=== PATIENT | female | born 1980 | race Hispanic/Latino ===

== ENCOUNTER 2023-02-19 08:02 | Inpatient (IN) | payer OTHER, SELFPAY ==
[2023-02-19] MEDS ORDERED: ACETAMINOPHEN 500 MG TAB ONE (08:28)
[2023-02-19] MEDS ORDERED: CEFTRIAXONE 2000 MG/VIAL ONE (08:29)
[2023-02-19] MEDS ORDERED: FENTANYL CITR 100 MCG/2 ML ONE ×2 (08:29→12:51)
[2023-02-19] MEDS ORDERED: IBUPROFEN 400 MG TAB ONE (08:29)
[2023-02-19] MEDS ORDERED: ONDANSETRON 4 MG/2 ML VIAL ONE (08:29)
[2023-02-19] MEDS ORDERED: IBUPROFEN 200 MG TAB PO ONE (08:29)
[2023-02-19] MEDS ORDERED: NA CHLORIDE 0.9% 2,000 ML ONE (08:30)
[2023-02-19 08:40] LABS: Absolute Lymphocytes (CBC) 0.6 K/uL (0.7-4.9); Hematocrit 30.1 % (36.0-45.0); Lymphocytes % 3.6 % (15.3-44.8); MCV 72.2 fL (80-100); MPV 7.6 fL (7.6-11.3); Platelets 192 thou/uL (152-406); RBC Red Blood Cell Count 4.17 M/uL (3.86-4.86)
[2023-02-19 08:46] LABS: Protime INR 1.47
--- NOTE | 2023-02-19 08:55 | RAD REPORT ---
[facility]23 8:45 am CLINICAL HISTORY: Cough;Abdominal distention COMPARISON: No comparisons TECHNIQUE: Portable AP view of the chest. FINDINGS: The lungs are clear. No pneumothorax or effusion. The cardiomediastinal contours are unre markable. IMPRESSION: No acute cardiopulmonary process.
[2023-02-19 09:06] LABS: Albumin 2.8 g/dL (3.4-5.0); Bilirubin Direct 0.3 mg/dL (0-0.2); Bilirubin Indirect, Calculated 0.4 mg/dL (0.2-0.8); Bilirubin Total 0.7 mg/dL (0.2-1.0); Magnesium 1.3 mg/dL (1.6-2.4); Protein, Total 7.5 g/dL (6.4-8.2); Troponin High Sensitivity 13.9 pg/mL (<58.9)
[2023-02-19 09:08] LABS: Potassium 2.6 mEq/L (3.5-5.1)
[2023-02-19] MEDS ORDERED: Magnesium Sulfate 2gm IVPB 2 G/50 ML BAG IV ONE (09:31)
[2023-02-19] MEDS ORDERED: POTASSIUM 25 MEQ EFFERV TAB ONE (09:31)
[2023-02-19] MEDS ORDERED: KCL 20 MEQ/100 mL IVPB 100 ML IV ONE ×2 (09:31→12:26)
[2023-02-19] MEDS ORDERED: NS KCL 20MEQ 1,000 ML IV ONE (09:31)
[2023-02-19 09:53] LABS: Blood Morphology Comment NOT SEEN (NOT SEEN); Platelet Estimate ADEQ; White Blood Cell Scan OK (OK)
[2023-02-19 10:41] LABS: Specific Gravity 1.005 (1.005-1.030); Urine Bacteria <20 /HPF (<20); Urine Bilirubin NEGATIVE (Negative); Urine Blood 3+ (Negative); Urine Clarity Extremely Turbid (Clear); Urine Color Light-Yellow (Yellow); Urine Glucose NEGATIVE (Negative); Urine Mucus Slight /HPF (None Seen); Urine Protein TRACE (Negative); Urine RBC <5 /HPF (None Seen); Urine Urobilinogen Normal (Normal); Urine pH 5.5 (5.0-7.0)
--- NOTE | 2023-02-19 10:41 | ER ---
Nurse's Notes [facility] Name: Gogo Russell Age: 43 yrs Sex: Female : 1980 Arrival Date: 02/19/2023 Time: 08:02 Bed 14 Private MD: Diagnosis: Fever, unspecified;Dehydration;Severe sepsis without septic shock;Abdominal tenderness;Hypokalemia;Hypomagnesemia;Hydronephrosis with renal and ureteral calculous obstruction;Pyelonephritis acute-obstructed Presentation: 02/19 08:06 Chief complaint: Patient states: N/V/D with cough, weakness for 4 days. Coronavirus ll1 screen: Vaccine status: Patient reports being unvaccinated. Client denies travel out of the [place] in the last 14 days. cough unrelated to allergies, diarrhea, fatigue, fever, headache, muscle pain, nausea, vomiting. Ebola Screen: Patient denies travel to an Ebola-affected area in the 21 days before illness onset. Initial Sepsis Screen: Does the patient meet any 2 criteria? Temp <36.0*C (96.8*F)) or > 38.3*C (100.9*F). HR > 90 bpm. Yes Does the patient have a suspected source of infection? Yes: Productive cough/pneumonia Other: N/V/D. Risk Assessment: Do you want to hurt yourself or someone else? Patient reports no desire to harm self or others. Onset of symptoms was February 16, 2023. 08:06 Method Of Arrival: Wheelchair ll1 08:06 Acuity: LORIN 2 ll1 Triage Assessment: 08:08 General: Appears uncomfortable, ill, Behavior is cooperative, appropriate for age, ll1 restless. General: Reports fever for feeling ill for fatigue for. Pain: Complains of pain in abdomen Pain currently is 7 out of 10 on a pain scale. Respiratory: Reports cough that is. GI: Reports cramping, diarrhea, nausea, vomiting. 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 aa5 Historical: - Allergies: 08:06 No Known Allergies; ll1 - PMHx: 08:06 None; ll1 - PSHx: 08:06 None; ll1 - Immunization history:: Adult Immunizations up to date. - Social history:: Smoking status: Patient denies any tobacco usage or history of. - Family history:: not pertinent. Screenin:35 [facility] ED Fall Risk Assessment (Adult) History of falling in the last 3 months, aa5 including since admission No falls in past 3 months (0 pts) Confusion or Disorientation No (0 pts) Intoxicated or Sedated No (0 pts) Impaired Gait No (0 pts) Mobility Assist Device Used No (0 pt) Altered Elimination No (0 pt) Score/Fall Risk Level 0 - 2 = Low Risk Oriented to surroundings, Maintained a safe environment, Educated pt \\T\\ family on fall prevention, incl call for assistance when getting out of bed. Abuse screen: Denies threats or abuse. Nutritional screening: Has had N/V for 3 or more days. Tuberculosis screening: No symptoms or risk factors identified. Assessment: 08:10 General: Appears uncomfortable, Behavior is calm, cooperative. Pain: Complains of pain aa5 in back and abdomen Pain currently is 7 out of 10 on a pain scale. Quality of pain is described as aching, Pt states "from coughing so much" Pain began 2-3 days ago. Is intermittent. Neuro: Level of Consciousness is awake, alert, obeys commands, Oriented to person, place, time, situation. Cardiovascular: Heart tones S1 S2 present Rhythm is sinus tachycardia. Respiratory: Reports cough that is productive, since 4 days ago Airway is patent Respiratory effort is even, unlabored, Respiratory pattern is regular, symmetrical, tachypnea Breath sounds are clear bilaterally. GI: Abdomen is round non-distended, Bowel sounds present X 4 quads. Abd is soft and non tender X 4 quads. Reports diarrhea, intolerance of fluids, intolerance of food, nausea, vomiting, since 4 days ago. : Reports burning with urination, urgency. EENT: No signs and/or symptoms were reported regarding the EENT system. Derm: Skin is dry, Skin is normal, Skin temperature is hot. Musculoskeletal: Range of motion: intact in all extremities. 09:00 Reassessment: Patient states feeling better. Pt now sleeping, equal and relaxed aa5 respirations. . 09:00 General: Appears in no apparent distress. uncomfortable, Behavior is calm, cooperative, eh3 appropriate for age. Pain: Complains of pain in right flank. Neuro: Level of Consciousness is awake, alert, obeys commands, Oriented to person, place, time, situation. Cardiovascular: Capillary refill < 3 seconds Patient's skin is warm and dry. Respiratory: Airway is patent Respiratory effort is even, unlabored, Respiratory pattern is regular, symmetrical. GI: Abdomen is round non-distended. : Reports burning with urination, urgency. Derm: Skin is dry, Skin is normal, Skin temperature is hot. Musculoskeletal: Circulation, motion, and sensation intact. Range of motion: intact in all extremities. 09:30 Reassessment: Patient states feeling better. Pt remains sleeping, pt easy to awake to aa5 verbal stimuli. . 10:00 Reassessment: Patient appears in no apparent distress at this time. Patient and/or 3 family updated on plan of care and expected duration. Pain level reassessed. Patient is alert, oriented x 3, equal unlabored respirations, skin warm/dry/pink. 11:00 Reassessment: Patient appears in no apparent distress at this time. Patient and/or 3 family updated on plan of care and expected duration. Pain level reassessed. Patient is alert, oriented x 3, equal unlabored respirations, skin warm/dry/pink. 11:54 Reassessment: PACU nurse at bedside, waiting to hear from anesthesia for clearance to [facility] take pt to surgery. Vital Signs: 08:06 BP 124 / 90; Pulse 128; Resp 20; Temp 102.8(O); Pulse Ox 98% on R/A; Weight 81.65 kg; ll1 Height 5 ft. 3 in. ; Pain 7/10; 08:33 BP 120 / 77; Pulse 108; Resp 24 S; Pulse Ox 96% on R/A; aa5 09:30 BP 107 / 74; Pulse 97; Resp 18 S; Temp 100.9(O); Pulse Ox 95% on R/A; aa5 10:07 Temp 99.3(O); eh3 10:30 BP 103 / 77; Pulse 94; Resp 18; Pulse Ox 97% on R/A; eh3 11:30 BP 103 / 71; Pulse 84; Resp 18; Pulse Ox 99% on R/A; eh3 08:06 Body Mass Index 31.89 (81.65 kg, 160.02 cm) ll1 08:06 Pain Scale: Adult ll1 ED Course: 08:04 Patient arrived in ED. aa5 08:05 Jameson Fall MD is Attending Physician. anastasia 08:06 Arm band placed on Patient placed in an exam room, on a stretcher. ll1 08:08 Triage completed. ll1 08:10 Patient has correct armband on for positive identification. Placed in gown. Bed in low aa5 position. Call light in reach. Side rails up X2. Client placed on continuous cardiac and pulse oximetry monitoring. NIBP monitoring applied. 08:14 Hannah Guerrero, JACK is Primary Nurse. aa5 08:30 First set of blood cultures drawn by me, Second set of blood cultures drawn by me. ds4 08:33 Inserted saline lock: 22 gauge in right antecubital area, using aseptic technique. ds4 Blood collected. 08:47 XRAY Chest (1 view) In Process Unspecified. EDMS 09:00 Provided Education on: Use of call darby. eh3 09:02 COVID swab sent to lab. Flu and/or RSV swab sent to lab. aa5 09:05 Jil Edwards RN is Primary Nurse. Primary Nurse role handed off by Hannah Guerrero RN eh3 09:05 Report given to JACK Ley. aa5 09:25 Inserted saline lock: 18 gauge in left forearm, using aseptic technique. aa5 10:20 Saravanan Griffith is Hospitalizing Provider. anastasia 11:07 CT Abd/Pelvis - IV Contrast Only In Process Unspecified. EDMS 11:54 No provider procedures requiring assistance completed. Patient admitted, IV remains in eh3 place. Administered Medications: 08:29 Drug: NS 0.9% IV 1000 ml IV at 1 bolus Per protocol; 1000 mL bolus Route: IV; Rate: 1 aa5 bolus; Site: right antecubital; 10:30 Follow up: IV Status: Completed infusion; IV Intake: 1000ml 3 08:29 Drug: NS 0.9% IV 1000 ml IV at 1 bolus Per protocol; 1000 mL bolus Route: IV; Rate: 1 aa5 bolus; Site: right antecubital; 10:00 Follow up: IV Status: Completed infusion; IV Intake: 1000ml 3 08:29 Drug: Ondansetron IVP 4 mg IVP once; over 2 minutes Route: IVP; Site: right antecubital;aa5 08:41 Follow up: Response: No adverse reaction aa5 08:29 Drug: fentaNYL (PF) IVP 25 mcg IVP once Route: IVP; Site: right antecubital; aa5 08:41 Follow up: Response: No adverse reaction aa5 08:41 Drug: Rocephin IV 2 grams IV at per protocol once; Given slow IV push per pharmarcy aa5 instructions Route: IV; Rate: per protocol; Site: right antecubital; 09:00 Follow up: Response: No adverse reaction; IV Status: Completed infusion; IV Intake: [id number] 08:55 Drug: Acetaminophen PO 1000 mg PO once Route: PO; aa5 10:07 Follow up: Temp 99.3 Oral; Response: No adverse reaction; Temperature is decreased eh3 08:55 Drug: Ibuprofen PO 600 mg PO once Route: PO; aa5 10:00 Follow up: Response: No adverse reaction eh3 08:57 Not Given (Pt now resting/ doesn't need 2nd dosee): fentanyl (pf)25 mcg IVP once aa5 09:32 Drug: Potassium PO Effervescent Tablet 50 mEq PO once; dissolve in 4 ounces of water or aa5 juice Route: PO; 10:07 Follow up: Response: No adverse reaction 3 09:32 Drug: Potassium Chloride IV 20 mEq IV at per protocol once; administer over 1-2 hours aa5 Route: IV; Rate: per protocol; Site: left forearm; 11:51 Follow up: Response: No adverse reaction; IV Status: Infusion continued upon admission; 3 IV Intake: 75ml 09:32 Drug: NS 0.9% with KCl IV 20 mEq/L 1000 ml IV at 125 ml/hr continuous Route: IV; Rate: aa5 125 ml/hr; Site: left forearm; 11:51 Follow up: IV Status: Infusion continued upon admission; IV Intake: 175ml eh3 09:32 Drug: Magnesium Sulfate IVPB 2 grams IVPB once over 2 hrs Route: IVPB; Infused Over: 2 aa5 hrs; Site: left forearm; 11:50 Follow up: Response: No adverse reaction; IV Status: Completed infusion; IV Intake: [id number] 11:45 Drug: levofloxacin IVPB 750 mg 150 ml IVPB once over 90 mins Volume: 150 ml; Route: eh3 IVPB; Infused Over: 90 mins; Site: left forearm; 11:49 Follow up: Response: No adverse reaction; IV Status: Infusion continued upon admission; eh3 IV Intake: 8ml 12:23 Not Given (1st bag K+ not yet complete. Handed off to PACU nurse upon admissionn): eh3 potassium [id number] meq IV at per protocol once; administer over 1-2 hours Medication: 11:54 VIS not applicable for this client. eh3 Intake: 09:00 IV: 10ml; Total: 10ml. eh3 10:00 IV: 1000ml; Total: 1010ml. eh3 10:30 IV: 1000ml; Total: 2010ml. eh3 11:49 IV: 8ml; Total: 2018ml. eh3 11:50 IV: 50ml; Total: 2068ml. eh3 11:51 IV: 175ml; Total: 2243ml. eh3 11:51 IV: 75ml; Total: 2318ml. eh3 Outcome: 10:40 Decision to Hospitalize by Provider. anastasia 12:23 Admitted to OR accompanied by nurse, via stretcher, [facility] 12:23 Condition: stable 12:23 Instructed on the need for admit, 12:23 Patient left the ED. 3 Signatures: Dispatcher [employer] EDMA Jameson Fall MD MD cha Calderon, Audri, RN RN Eliezer Andrea ds4 Terrie Singh RN RN ll1 Jil Edwards, JACK RN 3 Corrections: (The following items were deleted from the chart) 10:03 10:03 Primary Nurse role handed off by Hannah Guerrero RN [facility]3 10:03 10:03 Jil Edwards, RN is Primary Nurse. 3 3 11:32 10:00 BP 103 / 77; Pulse 94bpm; Resp 18bpm; Pulse Ox 97% RA; eh3 3
--- NOTE | 2023-02-19 10:41 | EDPHYS ---
Physician Documentation [facility] Name: Gogo Russell Age: 43 yrs Sex: Female : 1980 Arrival Date: 02/19/2023 Time: 08:02 Bed 14 Private MD: ED Physician Jameson Fall HPI: 02/19 08:15 This 43 yrs old Female presents to ER via Wheelchair with complaints of anastasia fever,right flank. 08:15 The patient presents with abdominal pain in the lower abdomen. Onset: The anastasia symptoms/episode began/occurred 2 day(s) ago. The patient complains of pain in the right mid back and right low back. The pain radiates to the right mid back and right low back. Modifying factors: The symptoms are alleviated by nothing. the symptoms are aggravated by nothing. The patient or guardian reports cough, described as mild. Severity of symptoms: At their worst the symptoms were moderate, in the emergency department the symptoms are unchanged. Associated signs and symptoms: Pertinent positives: dizziness, dysuria, nausea. Modifying factors: The symptoms are alleviated by nothing, the symptoms are aggravated by nothing. 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 aa5 Historical: - Allergies: 08:06 No Known Allergies; ll1 - PMHx: 08:06 None; ll1 - PSHx: 08:06 None; ll1 - Immunization history:: Adult Immunizations up to date. - Social history:: Smoking status: Patient denies any tobacco usage or history of. - Family history:: not pertinent. ROS: 08:15 Constitutional: Negative for fever, chills, and weight loss, Eyes: Negative for injury, anastasia pain, redness, and discharge, ENT: Negative for injury, pain, and discharge, Neck: Negative for injury, pain, and swelling, Back: Negative for injury and pain, : Negative for injury, bleeding, discharge, and swelling, MS/Extremity: Negative for injury and deformity, Skin: Negative for injury, rash, and discoloration, Neuro: Negative for headache, weakness, numbness, tingling, and seizure, Psych: Negative for depression, anxiety, suicide ideation, homicidal ideation, and hallucinations, Allergy/Immunology: Negative for hives, rash, and allergies, Endocrine: Negative for neck swelling, polydipsia, polyuria, polyphagia, and marked weight changes, Hematologic/Lymphatic: Negative for swollen nodes, abnormal bleeding, and unusual bruising, 08:15 Cardiovascular: Positive for palpitations, 08:15 Respiratory: Positive for cough, 08:15 Abdomen/GI: Positive for abdominal pain, nausea and vomiting, of the posterior aspect of right lateral abdomen, right lower quadrant and left lower quadrant, Exam: 08:15 Head/Face: Normocephalic, atraumatic. Eyes: Pupils equal round and reactive to light, anastasia extra-ocular motions intact. Lids and lashes normal. Conjunctiva and sclera are non-icteric and not injected. Cornea within normal limits. Periorbital areas with no swelling, redness, or edema. ENT: Nares patent. No nasal discharge, no septal abnormalities noted. Tympanic membranes are normal and external auditory canals are clear. Oropharynx with no redness, swelling, or masses, exudates, or evidence of obstruction, uvula midline. Mucous membranes moist. Neck: Trachea midline, no thyromegaly or masses palpated, and no cervical lymphadenopathy. Supple, full range of motion without nuchal rigidity, or vertebral point tenderness. No Meningismus. Chest/axilla: Normal chest wall appearance and motion. Nontender with no deformity. No lesions are appreciated. Respiratory: Lungs have equal breath sounds bilaterally, clear to auscultation and percussion. No rales, rhonchi or wheezes noted. No increased work of breathing, no retractions or nasal flaring. Skin: Warm, dry with normal turgor. Normal color with no rashes, no lesions, and no evidence of cellulitis. MS/ Extremity: Pulses equal, no cyanosis. Neurovascular intact. Full, normal range of motion. Neuro: Awake and alert, GCS 15, oriented to person, place, time, and situation. Cranial nerves II-XII grossly intact. Motor strength 5/5 in all extremities. Sensory grossly intact. Cerebellar exam normal. Normal gait. Psych: Awake, alert, with orientation to person, place and time. Behavior, mood, and affect are within normal limits. 08:15 Constitutional: The patient appears febrile, 08:15 Cardiovascular: Rate: tachycardic, actual rate is 128 bpm, Pulses: Pulses are 4+ in bilateral radial, brachial, femoral, popliteal, posterior tibial and and dorsalis pedis arteries.. Heart sounds: normal, normal S1and S2, no S3 or S4, no murmur, no rub, no gallop, Edema: is not appreciated, JVD: is not appreciated, 08:15 ECG was reviewed by the Attending Physician. Vital Signs: 08:06 BP 124 / 90; Pulse 128; Resp 20; Temp 102.8(O); Pulse Ox 98% on R/A; Weight 81.65 kg; ll1 Height 5 ft. 3 in. ; Pain 7/10; 08:33 BP 120 / 77; Pulse 108; Resp 24 S; Pulse Ox 96% on R/A; aa5 09:30 BP 107 / 74; Pulse 97; Resp 18 S; Temp 100.9(O); Pulse Ox 95% on R/A; aa5 10:07 Temp 99.3(O); eh3 10:30 BP 103 / 77; Pulse 94; Resp 18; Pulse Ox 97% on R/A; eh3 11:30 BP 103 / 71; Pulse 84; Resp 18; Pulse Ox 99% on R/A; eh3 08:06 Body Mass Index 31.89 (81.65 kg, 160.02 cm) ll1 08:06 Pain Scale: Adult ll1 MDM: 08:05 Patient medically screened. anastasia 08:25 Differential Diagnosis: Influenza Upper Respiratory Infection Sinusitis Pharyngitis anastasia Viral Syndrome Pneumonia. Differential diagnosis: nephrolithiasis, pyelonephritis, UTI, diverticulitis, pancreatitis, diverticulitis, gastritis, non-specific abd pain, pancreatitis, Peptic Ulcer Disease, urinary tract infection. Data reviewed: vital signs, nurses notes, lab test result(s), EKG, radiologic studies, CT scan, plain films. Consideration of Admission/Observation Escalation of care including admission/observation considered. I considered the following discharge prescriptions or medication management in the emergency department Medications were administered in the Emergency Department. See MAR. Independent interpretation of the following test(s) in the Emergency Department EKG: See my EKG interpretation above. Test considered but Not performed: Ultrasound no abd usg. Historians other than the Patient: Family Member: daughter. 02/19 08:11 Order name: Basic Metabolic Panel; Complete Time: 09:09 anastasia 02/19 08:11 Order name: CBC with Diff; Complete Time: 10:04 anastasia 02/19 08:11 Order name: LFT's; Complete Time: 09:09 anastasia 02/19 08:11 Order name: Magnesium; Complete Time: 09:09 anastasia 02/19 08:11 Order name: NT PRO-BNP; Complete Time: 09:09 [facility] 02/19 08:11 Order name: PT-INR; Complete Time: 09:09 anastasia 02/19 08:11 Order name: Troponin HS; Complete Time: 09:09 [facility] 02/19 08:11 Order name: Lipase; Complete Time: 09:09 [facility] 02/19 08:11 Order name: Blood Culture Adult (2) 02/19 08:11 Order name: Lactate w/ 2H reflex if indic.; Complete Time: 09:09 anastasia 02/19 08:11 Order name: COVID-19 SARS RT PCR; Complete Time: 10:04 [facility] 02/19 08:11 Order name: Flu; Complete Time: 10:04 anastasia 02/19 09:07 Order name: Urinalysis w/ reflexes; Complete Time: 10:52 aa5 02/19 09:53 Order name: CBC Smear Scan; Complete Time: 10:04 EDMS 02/19 10:15 Order name: Test, Serum; Complete Time: 10:52 [facility] 02/19 12:00 Order name: Potassium eh3 02/19 08:11 Order name: XRAY Chest (1 view); Complete Time: 09:09 [facility] 02/19 08:11 Order name: CT Abd/Pelvis - IV Contrast Only; Complete Time: 12:07 [facility] 02/19 08:11 Order name: EKG; Complete Time: 08:12 [facility] 02/19 08:11 Order name: Cardiac monitoring; Complete Time: 08:29 [facility] 02/19 08:11 Order name: EKG - Nurse/Tech; Complete Time: 08:29 [facility] 02/19 08:11 Order name: IV Saline Lock; Complete Time: 08:30 [facility] 02/19 08:11 Order name: Labs collected and sent; Complete Time: 08:30 [facility] 02/19 08:11 Order name: O2 Per Protocol; Complete Time: 08:30 [facility] 02/19 08:11 Order name: O2 Sat Monitoring; Complete Time: 08:30 [facility] 02/19 09:10 Order name: IV - Large Bore; Complete Time: 09:32 [facility] 02/19 10:07 Order name: Misc. Order: please collect urine; Complete Time: 10:16 anastasia 02/19 11:27 Order name: NPO; Complete Time: 11:29 [facility] EC:15 Rate is 118 beats/min. Rhythm is regular. QRS [place] is Normal. [place] interval is normal. anastasia QRS interval is normal. QT interval is normal. No Q waves. T waves are Normal. No ST changes noted. Clinical impression: Sinus tachycardia and No evidence of ischemia. Interpreted by me. Reviewed by me. Administered Medications: 08:29 Drug: NS 0.9% IV 1000 ml IV at 1 bolus Per protocol; 1000 mL bolus Route: IV; Rate: 1 aa5 bolus; Site: right antecubital; 10:30 Follow up: IV Status: Completed infusion; IV Intake: 1000ml eh3 08:29 Drug: NS 0.9% IV 1000 ml IV at 1 bolus Per protocol; 1000 mL bolus Route: IV; Rate: 1 aa5 bolus; Site: right antecubital; 10:00 Follow up: IV Status: Completed infusion; IV Intake: 1000ml eh3 08:29 Drug: Ondansetron IVP 4 mg IVP once; over 2 minutes Route: IVP; Site: right antecubital;aa5 08:41 Follow up: Response: No adverse reaction aa5 08:29 Drug: fentaNYL (PF) IVP 25 mcg IVP once Route: IVP; Site: right antecubital; aa5 08:41 Follow up: Response: No adverse reaction aa5 08:41 Drug: Rocephin IV 2 grams IV at per protocol once; Given slow IV push per pharmarcy aa5 instructions Route: IV; Rate: per protocol; Site: right antecubital; 09:00 Follow up: Response: No adverse reaction; IV Status: Completed infusion; IV Intake: [id number] 08:55 Drug: Acetaminophen PO 1000 mg PO once Route: PO; aa5 10:07 Follow up: Temp 99.3 Oral; Response: No adverse reaction; Temperature is decreased eh3 08:55 Drug: Ibuprofen PO 600 mg PO once Route: PO; aa5 10:00 Follow up: Response: No adverse reaction eh3 08:57 Not Given (Pt now resting/ doesn't need 2nd dosee): fentanyl (pf)25 mcg IVP once aa5 09:32 Drug: Potassium PO Effervescent Tablet 50 mEq PO once; dissolve in 4 ounces of water or aa5 juice Route: PO; 10:07 Follow up: Response: No adverse reaction eh3 09:32 Drug: Potassium Chloride IV 20 mEq IV at per protocol once; administer over 1-2 hours aa5 Route: IV; Rate: per protocol; Site: left forearm; 11:51 Follow up: Response: No adverse reaction; IV Status: Infusion continued upon admission; eh3 IV Intake: 75ml 09:32 Drug: NS 0.9% with KCl IV 20 mEq/L 1000 ml IV at 125 ml/hr continuous Route: IV; Rate: aa5 125 ml/hr; Site: left forearm; 11:51 Follow up: IV Status: Infusion continued upon admission; IV Intake: 175ml eh3 09:32 Drug: Magnesium Sulfate IVPB 2 grams IVPB once over 2 hrs Route: IVPB; Infused Over: 2 aa5 hrs; Site: left forearm; 11:50 Follow up: Response: No adverse reaction; IV Status: Completed infusion; IV Intake: [id number] 11:45 Drug: levofloxacin IVPB 750 mg 150 ml IVPB once over 90 mins Volume: 150 ml; Route: eh3 IVPB; Infused Over: 90 mins; Site: left forearm; 11:49 Follow up: Response: No adverse reaction; IV Status: Infusion continued upon admission; eh3 IV Intake: 8ml 12:23 Not Given (1st bag K+ not yet complete. Handed off to PACU nurse upon admissionn): eh3 potassium [id number] meq IV at per protocol once; administer over 1-2 hours Disposition Summary: 02/19/23 10:40 Hospitalization Ordered Notes: Hospitalization Status: Inpatient Admission anastasia Provider: Saravanan Griffith cha [facility] anastasia Condition: Stable anastasia Problem: new anastasia Symptoms: have improved anastasia Bed/Room Type: Standard anastasia Room Assignment: anastasia Diagnosis - Fever, unspecified anastasia - Dehydration anastasia - Severe sepsis without septic shock anastasia - Abdominal tenderness anastasia - Hypokalemia anastasia - Hypomagnesemia anastasia - Hydronephrosis with renal and ureteral calculous obstruction anastasia - Pyelonephritis acute - obstructed(02/19/23 11:36) anastasia Forms: - Medication Reconciliation Form anastasia - SBAR form anastasia - Leadership Thank You Letter anastasia Signatures: Dispatcher [employer] Jameson Bess MD MD cha Calderon, Audri, RN RN aa5 Terrie Singh RN RN ll1 Jil Edwards RN RN eh3 Cristi Hebert MD MD rt Corrections: (The following items were deleted from the chart) 10:19 08:12 Test, Urine+[id number].LAB.BRZ ordered. EDMS EDMS 10:53 10:40 Pyelonephritis acute [facility] 11:36 11:27 Pyelonephritis acute [facility]
--- NOTE | 2023-02-19 11:36 | RAD REPORT ---
EXAM DESCRIPTION: CT - Abdomen Pelvis W Contrast - 02/19/2023 11:05 am CLINICAL HISTORY: Kidney stones;Pyelonephritis COMPARISON: OBSTETRICAL COMPLETE dated 06/13/2010 TECHNIQUE: Thin cut axial CT imaging of the abdomen and pelvis was performed following intravenous a dministration of 100 mL Isovue 300. Multiplanar reformats were generated and reviewed. All CT scans are performed using dose optimization technique as appropriate and may include automated exposure control or mA/KV adjustment according to patient size. FINDINGS: No suspicious findings in the lung bases. The liver, spleen, adrenal glands, and pancreas show no suspicious findings. Gallbladder was surgical ly removed. Enlargement of the right kidney with patchy areas of hypoattenuation throughout the renal cortex, and fat stranding and mild fail accumulation throughout the perinephric space. No appreciable fluid alexander ections. Mild to moderate right hydroureteronephrosis a distal right ureteric 5 millimeter calculus i s noted. No abnormalities of the left kidney. . No dilated bowel loops or bowel wall thickening. No free air, free fluid or inflammatory stranding. N o hernia, mass or bulky lymphadenopathy. Prominence of the uterus with some accumulation of fluid in the endometrial cavity. Please correlate with menstrual phase. Appendix is unremarkable. Lobulated le ft adnexal cystic lesion measuring 10.2 x 6.5 cm. The urinary bladder is without significant finding. No suspicious bony findings. IMPRESSION: [id number] right hydroureteronephrosis with a 5 millimeter distal right ureteric o bstructing calculus. Swelling and inflammatory changes of the right kidney with patchy cortical hypoattenuation suggestive of acute pyelonephritis. Lobulated left adnexal 10.2 cm cystic lesion, without complex features. While this may be physiologic , dedicated pelvic ultrasound follow-up in 6-10 weeks is recommended to ensure resolution and re-eval uate the left adnexal and endometrial findings.
[2023-02-19] MEDS ORDERED: Levofloxacin 750mg IV 750 MG/150 ML BAG IV ONE (11:47)
[2023-02-19] MEDS ORDERED: MORPHINE 2 MG/ML SYR IV PRN (12:47)
--- NOTE | 2023-02-19 12:47 | P.HP ---
Certification for Inpatient Patient admitted to: Inpatient With expected LOS: >2 Midnights Patient will require the following post-hospital care: None Practitioner: I am a practitioner with admitting privileges, knowledge of patient current condition, hospital course, and medical plan of care. Services: Services provided to patient in accordance with Admission requirements found in Title 42 Section 412.3 of the Code of Federal Regulations Patient History Date of Service: 02/19/23 Reason for admission: Obstructive uropathy History of Present Illness: Patient is a 43-year-old female who presents to the emergency room with right flank tenderness. Patient has been running fevers with shaking chills. Patient denies any medical history. In the emergency room her work-up revealed right- sided pyelonephritis with right obstructive uropathy. There is a stone in the right ureter. This is causing hydroureteronephrosis. Patient was seen by urology, Dr. Crum. Patient be taken to the OR for cystoscopy with possible stent placement. Otherwise, patient denies any other medical history. Patient low risk for any cardiopulmonary complications. Patient did well after cystoscopy. Patient is walking around and still having pain but feeling better. Blood pressure is on the lower side and will continue to monitor. Continue with IV antibiotics and pain control. Hopefully, we can work on discharge in the morning if her hemodynamics are stable and her infection is well controlled. Allergies No Known Allergies Allergy (Unverified 02/19/23 12:54) Home Medications: NK [No Home Meds] 02/19/23 - Past Medical/Surgical History Past Medical History: Patient denies medical history Past Surgical History: Patient denies surgical history - Family History Father Family History: Reviewed- Non-Contributory - Social History Smoking Status: Current every day smoker Alcohol use: Yes CD- Drugs: Yes Review of Systems 10-point ROS is otherwise unremarkable Physical Examination - Vital Signs Temperature: 101 F (reviewed) - Physical Exam General: Alert, In no apparent distress, Oriented x3 HEENT: Atraumatic, PERRLA, Mucous membr. moist/pink, EOMI, Sclerae nonicteric Neck: Supple, 2+ carotid pulse no bruit, No LAD, Without JVD or thyroid abnormality Respiratory: Clear to auscultation bilaterally, Normal air movement Cardiovascular: Regular rate/rhythm, Normal S1 S2 Gastrointestinal: Normal bowel sounds, Soft and benign, Non-distended, Tenderness (Patient with flank tenderness) Musculoskeletal: No clubbing, No swelling, Tenderness Integumentary: No rashes Neurological: Normal gait, Normal speech, Normal strength at 5/5 x4 extr, Normal tone, Sensation intact, Cranial nerves 3-12 intact, Normal affect Lymphatics: No axilla or inguinal lymphadenopathy - Studies Laboratory Data (last 24 hrs) 02/19/23 02/19/23 02/19/23 12:06 08:30 08:30 WBC 17.30 H Hgb 9.9 L Hct 30.1 L Plt Count 192 PT 16.2 H INR 1.47 Sodium Potassium 3.5 D BUN Creatinine Glucose Magnesium Total Bilirubin AST ALT Alkaline Phosphatase Lipase 02/19/23 08:30 WBC Hgb Hct Plt Count PT INR Sodium 126 L Potassium 2.6 L* BUN 15 Creatinine 1.26 H Glucose 169 H Magnesium 1.3 L Total Bilirubin 0.7 AST 55 H ALT 49 Alkaline Phosphatase 89 Lipase 16 Microbiology Data (last 24 hrs): 02/19/23 09:02 Nasopharnyx Influenza Type A Antigen Screen - Final 02/19/23 09:02 Nasopharnyx Influenza Type B Antigen Screen - Final Assessment & Plan - Problems (Diagnosis) (1) Pyelonephritis Current Visit: Yes Status: Acute (2) Hydroureteronephrosis Current Visit: Yes Status: Acute (3) Obstructive uropathy Current Visit: Yes Status: Acute - Plan Plan: 1. IV hydration 2. Pain control 3. IV antibiotics 4. Urology consultation for possible J stent 5. Strict blood sugar control 6. Monitor for sepsis 7. GI DVT prophylaxis Discharge Plan: Home Plan to discharge in: 24 Hours - Advance Directives Does patient have a Living Will: No Does patient have a Durable POA for Healthcare: No - Code Status/Comfort Care Code Status Assessed: Yes Code Status: Full Code Critical Care: No Time Spent Managing PTS Care (In Minutes): 45
--- NOTE | 2023-02-19 12:49 | EKG ---
Test Date: 2023-02-19 Test Time: 08:22:20 Housefellow: Rosalba VALENCIA MEASUREMENT RESULTS: Intervals: Rate: 118 AR: 156 QRSD: 102 QT: 312 QTc: 437 [place]: P: 71 AR: 156 QRS: 186 T: 51 INTERPRETIVE STATEMENTS: Sinus tachycardia Otherwise normal ECG No previous ECG available for comparison Electronically Signed On 02-19-23 12:48:01 CDT by Boston Monsivais
[2023-02-19] MEDS ORDERED: LIDOCAINE 1% MPF 5 ML VIAL ONE (12:51)
[2023-02-19] MEDS ORDERED: propofoL 200 MG/20 ML VIAL IV ONE (12:51)
[2023-02-19] MEDS ORDERED: MIDAZOLAM HCL 2 MG/2 ML INJ ONE (12:56)
--- NOTE | 2023-02-19 12:56 | P.CNS ---
Date of Consult: 02/19/23 Reason for Consult: Obstructive pyelonephritis Requesting Physician: Jameson Fall Chief Complaint: Right flank pain History of Present Illness: 43-year-old woman G3, P3 C-sections with hypothyroidism presents to the emergency department with right flank pain that began on Saturday. This progressively worsened to include nausea and vomiting on Saturday, and she developed fever and chills which persisted on admission. She has had some urinary frequency and urgency associated. She denies any prior history of kidney stones. Past medical history: Hypothyroidism Past surgical history: Laparoscopic cholecystectomy No known drug allergies Social history: Recreational marijuana use Family history: No urologic malignancy Examination: Ill-appearing in mild distress Alert, awake, oriented x3 No dyspnea or sign of respiratory distress No cervical/supraclavicular adenopathy or thyromegaly Abdomen soft, generally mildly tender with increased tenderness in the right lower mid quadrant Musculoskeletal: Ambulatory with ease without significant limitation noted No Homans' sign 02/19/2023 WBC 17.3, hemoglobin 9.9, platelets 192, INR 1.47, sodium 126, potassium 2.6, chloride 96, bicarb 22, BUN/creatinine 15/1.26, UA 3+ heme otherwise negative 02/19/2023 CT abdomen and pelvis with IV contrast (imaging directly reviewed by me) slightly enlarged right kidney with patchy uptake of contrast and mild to moderate hydronephrosis associated with a distal right ureteral calculus, which the radiologist measured at 5 mm. Left kidney normal. No renal calculi noted. Radiologist findings: Lobulated left adnexal 10.2 cm cystic lesion without complex features. 6 to 10-week follow-up to ensure resolution recommended because of that and findings of prominence of the uterus with some accumulation of fluid in the endometrial cavity. Assessment and recommendation: 43-year-old woman C-sections with hypothyroidism and right obstructive pyelonephritis due to 5 mm distal ureteral calculus, first-time stone former, with significant metabolic derangements in her chemistry profile, and left adnexal 10.2 cm cystic lesion and fluid in the endometrial cavity of uncertain etiology. -Patient receiving oral and IV potassium, and a repeat serum potassium level 3.5 -I counseled the patient and her family, mother and sister, with her with regard to the findings and explained the risk of mortality associated if intervention not accomplished. I explained the recommendation for cystoscopy, right retrograde pyelography and stent placement, but I explained the potential need for percutaneous nephrostomy tube placement if impacted ureteral calculus obstruction is present. -Risks were discussed to include urethral stricture, injury to the ureter -Side effects of irritative LUTS and stent discomfort were also discussed -The fact that the stent is a foreign body that must be removed was also discussed, and did need for definitive management of the stone subsequently was also reviewed. -She will be taken accordingly for prompt cystoscopy with right retrograde pyelography and stent placement Home medications list reviewed: Yes - Past Medical/Surgical History Diabetic: No Physical Examination Laboratory Data (last 24 hrs) 02/19/23 02/19/23 02/19/23 12:06 08:30 08:30 WBC 17.30 H Hgb 9.9 L Hct 30.1 L Plt Count 192 PT 16.2 H INR 1.47 Sodium Potassium 3.5 D BUN Creatinine Glucose Magnesium Total Bilirubin AST ALT Alkaline Phosphatase Lipase 02/19/23 08:30 WBC Hgb Hct Plt Count PT INR Sodium 126 L Potassium 2.6 L* BUN 15 Creatinine 1.26 H Glucose 169 H Magnesium 1.3 L Total Bilirubin 0.7 AST 55 H ALT 49 Alkaline Phosphatase 89 Lipase 16 Critical Care: Yes Time Spent Managing Pts care (In Minutes): 45
[2023-02-19] MEDS ORDERED: Ringers Lactate 1,000 ML IV ONE (13:25)
--- NOTE | 2023-02-19 13:32 | P.OP ---
Date of Service: 02/19/23 Preoperative diagnosis: Obstructive pyelonephritis right Metabolic derangements with hypokalemia, hyponatremia, and metabolic acidosis Postoperative diagnosis: Same Principal procedures: Cystoscopy Right retrograde pyelography Right 6 Slovak by 26 cm double-J ureteral stent placement Right renal aspirate urine culture Indication for procedure: 43-year-old woman C-sections with hypothyroidism and right obstructive pyelonephritis due to 5 mm distal ureteral calculus, first-time stone former, with significant metabolic derangements in her chemistry profile, and left adnexal 10.2 cm cystic lesion and fluid in the endometrial cavity of uncertain etiology. -Patient receiving oral and IV potassium, and a repeat serum potassium level 3.5 Procedure note: The patient was consented in the preoperative holding area before being transferred to the operative suite where general anesthesia was induced. She had been given ceftriaxone and Levaquin IV antimicrobial therapy, and she was placed supine on the operative table before being placed in the lithotomy position, padded and secured to the table appropriately. Her genitalia was prepped with Hibiclens and she was draped in standard fashion. The case was begun using a 22 Slovak rigid cystoscope to traverse the urethra and into the bladder with ease. The bladder was decompressed of fluid and urine and then surveyed. The ureteral orifice was noted to be somewhat posteriorly displaced within the bladder, but it was cannulated on the right side using the tip of a sensor wire and a 5 Slovak ureteral access catheter. The catheter was advanced up into the mid proximal ureter as evidence fluoroscopically where there was a hydronephrotic drip of urine. We collected some of this urine for culture. I then advanced the wire up into her collecting system after performing a retrograde pyelogram to delineate the collecting system and target for stent placement. Right retrograde pyelography: Using a 70: 30 mixture of Omnipaque and saline, live fluoroscopic imagery was obtained as contrast was injected to minimize the influx of contrast into what was likely a infected collecting system of urine. Once the upper and midpole calyces were delineated, I then passed the sensor wire into the upper pole calyx where it coiled fluoroscopically and remove the 5 Slovak ureteral access catheter. I then advanced a 6 Slovak by 26 cm double-J ureteral stent over the indwelling sensor wire coiling it within the upper pole of the right kidney with an additional coil formed cystoscopically within the bladder. There was then drainage of urine from the right kidney that was somewhat purulent and consistent with possible papillary necrosis. Additional urine draining was collected also and sent for culture. I then remove the cystoscope and placed a 16 Slovak urethral Vieyra catheter into her bladder with ease and placed approximately 5 cc of sterile saline in the ba lloon. The catheter was placed to gravity drainage, and the patient was taken out of the lithotomy position. She was then awakened from general anesthesia, transferred to a stretcher, and then transferred to the recovery room in good condition. Complications: None Discharge disposition: She will likely require at least 14 days of definitive tissue penetrating antimicrobial therapy once we have the results of the cultures, particularly that sent intraoperatively as it reflects urine retained above the point of obstruction and obstructing stone. Subsequent follow-up should then be established in the urology clinic within the next several weeks to plan definitive surgical management with right ureteroscopy with laser lithotripsy and stent exchange. Surgery may be scheduled in advance, and she may be seen in clinic as a preoperative visit in preparation for the surgery.
--- NOTE | 2023-02-19 13:33 | RAD REPORT ---
EXAM DESCRIPTION: RAD - Urethrocystogrphy Retrograde - 02/19/2023 1:24 pm CLINICAL HISTORY: RT RETROGRADE AND STENT PLACEMENT COMPARISON: No comparisons FINDINGS: Total fluoro time: 4 seconds
[2023-02-19 15:19] VITALS: BMI 31.8
[2023-02-19] MEDS: NA CHLORIDE 0.9% 1,000 ML IV SCH ×2 (15:54→20:19)
[2023-02-19] MEDS: AMPICILLIN SODIUM 2 GM in NA CHLORIDE 0.9% 100 ML IVPB SCH (15:54)
[2023-02-19] MEDS: ONDANSETRON 4 MG/2 ML VIAL IV PRN ×2 (15:54→20:19)
[2023-02-19] MEDS ORDERED: NA CHLORIDE 0.9% 500 ML IV ONE ×2 (17:30→20:08)
[2023-02-19] MEDS: ACETAMINOPHEN 500 MG TAB PO PRN (20:18)
[2023-02-19] MEDS: FENTANYL CITR 100 MCG/2 ML IV PRN (20:19)
[2023-02-20] MEDS: AMPICILLIN SODIUM 2 GM in NA CHLORIDE 0.9% 100 ML IVPB SCH ×3 (00:35→17:17)
[2023-02-20] MEDS: FENTANYL CITR 100 MCG/2 ML IV PRN ×4 (01:00→20:01)
[2023-02-20] MEDS: HYDROCODONE/APAP 5/325 MG TAB PO PRN (04:17)
[2023-02-20] MEDS: NA CHLORIDE 0.9% 1,000 ML IV SCH ×3 (05:56→20:02)
[2023-02-20 07:19] LABS: Absolute Lymphocytes (CBC) 0.5 K/uL (0.7-4.9); Hematocrit 25.1 % (36.0-45.0); Lymphocytes % 4.8 % (15.3-44.8); MPV 7.9 fL (7.6-11.3); Platelets 148 thou/uL (152-406); RBC Red Blood Cell Count 3.49 M/uL (3.86-4.86)
[2023-02-20 07:38] LABS: Albumin 2.1 g/dL (3.4-5.0); Bilirubin Total 0.4 mg/dL (0.2-1.0); Magnesium 2.1 mg/dL (1.6-2.4); Phosphorus 1.8 mg/dL (2.5-4.9); Potassium 3.1 mEq/L (3.5-5.1); Protein, Total 6.1 g/dL (6.4-8.2)
[2023-02-20] MEDS ORDERED: POTASS/SODIUM PHOSPHATE 1 PKT POWD.PACK PO ONE (08:35)
[2023-02-20] MEDS ORDERED: CEFTRIAXONE 1,000 MG in NA CHLORIDE 0.9% 50 ML IVPB SCH (09:00)
[2023-02-20] MEDS: ACETAMINOPHEN 500 MG TAB PO PRN ×2 (10:12→20:01)
--- NOTE | 2023-02-20 12:01 | CON ---
History Of Present Illness: This is a 43-year-old female, coming in with pyelonephritis of the right side and hydronephrosis with obstructive uropathy. The patient is currently on IV antibiotic. Eyal es any headache, nausea, vomiting. Continued to have abdominal and right-sided CVA pain. The patien t denies any other problems. No previous history of urine infection. Past Medical History: Unremarkable. Past Surgical History: None. Medications: Ampicillin and Rocephin. See MAR for other medications. Allergies: NO KNOWN DRUG ALLERGIES. Review of Systems: A 10-point review was performed. Physical Examination: General: This is a 43-year-old female, lying in bed, somnolent, not in any acute distress. Vital Signs: Temperature 97, pulse 90, respiration 18, blood pressure 109/73. HEENT: Unremarkable. Neck: Supple. Lungs: Clear to auscultation. Heart: S1, S2. Regular. Abdomen: Soft. Bowel sounds present. Right-sided CVA tenderness. Extremities: No edema. Laboratory Data: Shows WBC 11 down from 17, hemoglobin 8.3, platelets are 148. Chemistry shows BUN of 7, creatinine 0.8, GFR of 92, potassium 3.1. Micro data shows blood and urine cultures are growin g gram-negative rods. Sensitivity and specificity pending. Assessment And Plan: Right-sided pyelonephritis, leukocytosis, hypokalemia, anemia, thrombocytopenia . Continue current treatment. Adjust antibiotic accordingly for total course of 2 weeks. We will f ollow the patient as needed. Thank you Dr. Madden for consult. NF/MODL Voice ID: [id number] Report ID: [id number]
[2023-02-20] MEDS: ONDANSETRON 4 MG/2 ML VIAL IV PRN ×2 (15:56→20:01)
[2023-02-20] MEDS: CEFTRIAXONE 1,000 MG in NA CHLORIDE 0.9% 50 ML IVPB SCH (20:02)
[2023-02-21] MEDS ORDERED: NA CHLORIDE 0.9% 250 ML IV SCH
[2023-02-21] MEDS ORDERED: SODIUM CHLORIDE 0.9% 10ML INJ IV PRN (00:04)
[2023-02-21 00:33] LABS: Absolute Lymphocytes (CBC) 0.8 K/uL (0.7-4.9); Hematocrit 25.2 % (36.0-45.0); Lymphocytes % 8.7 % (15.3-44.8); MCV 71.3 fL (80-100); MPV 8.3 fL (7.6-11.3); Platelets 147 thou/uL (152-406); RBC Red Blood Cell Count 3.53 M/uL (3.86-4.86)
[2023-02-21] MEDS: AMPICILLIN SODIUM 2 GM in NA CHLORIDE 0.9% 100 ML IVPB SCH ×3 (00:33→17:06)
[2023-02-21 00:38] LABS: Protime INR 1.32
[2023-02-21] MEDS: PANTOPRAZOLE 40 MG INJ IVP SCH ×3 (00:44→20:45)
[2023-02-21] MEDS: ONDANSETRON 4 MG/2 ML VIAL IV PRN ×2 (00:44→04:42)
[2023-02-21] MEDS: FENTANYL CITR 100 MCG/2 ML IV PRN ×2 (00:44→04:41)
[2023-02-21 00:55] LABS: Albumin 2.1 g/dL (3.4-5.0); Bilirubin Total 0.3 mg/dL (0.2-1.0); Potassium 2.8 mEq/L (3.5-5.1); Protein, Total 6.1 g/dL (6.4-8.2)
[2023-02-21] MEDS ORDERED: POTASSIUM 25 MEQ EFFERV TAB PO ONE (01:11)
--- NOTE | 2023-02-21 01:43 | P.PN ---
Subjective Date of Service: 02/21/23 Chief Complaint: Obstructive uropathy Subjective: New changes Nurse called reported patient rectal bleeding overnight. Patient is not on anticoagulation. Patient was asymptomatic. Type and cross ordered, trend H&H, CBC, CMP ordered, CT of the abdomen with contrast ordered for evaluation of GI bleed. Laboratory evaluation hemoglobin is stable at 8.5 yesterday was 8.3, platelets are 147. Yesterday 148. INR is normal at 1.32. Hypokalemia was 2.8, potassium replenished. Pending CT abdomen pelvis. Physical Examination - Vital Signs Temperature: 100.3 F Blood Pressure: 139/83 Pulse: 109 Respirations: 18 Pulse Ox (%): 100 - Studies Laboratory Data (last 24 hrs) 02/20/23 02/20/23 06:51 06:51 WBC 11.10 H Hgb 8.3 L D Hct 25.1 L Plt Count 148 L Sodium 135 L D Potassium 3.1 L BUN 7 Creatinine 0.82 Glucose 124 H Phosphorus 1.8 L Magnesium 2.1 Total Bilirubin 0.4 AST 47 H ALT 48 Alkaline Phosphatase 81
[2023-02-21] MEDS ORDERED: KCL 20 MEQ/100 mL IVPB 20 MEQ/100 ML BAG IV ONE (02:00)
[2023-02-21] MEDS: HYDROCODONE/APAP 5/325 MG TAB PO PRN ×3 (08:37→21:37)
--- NOTE | 2023-02-21 09:24 | P.PN ---
Subjective Date of Service: 02/20/23 Patient is doing well with no new complaints. Clinical symptoms are stable. Pain is increased but overall controlled. Review of Systems 10-point ROS is otherwise unremarkable Physical Examination - Vital Signs Temperature: 99.6 F Blood Pressure: 97/65 Pulse: 81 Respirations: 18 Pulse Ox (%): 100 - Physical Exam General: Alert, In no apparent distress HEENT: Atraumatic, PERRLA, EOMI Neck: Supple, JVD not distended Respiratory: Clear to auscultation bilaterally, Normal air movement Cardiovascular: Regular rate/rhythm, Normal S1 S2 Gastrointestinal: Normal bowel sounds, No tenderness Musculoskeletal: No tenderness Integumentary: No rashes Neurological: Normal speech, Normal tone, Normal affect Lymphatics: No axilla or inguinal lymphadenopathy - Studies Medications List Reviewed: Yes Assessment & Plan - Problems (Diagnosis) (1) Pyelonephritis Current Visit: Yes Status: Acute (2) Hydroureteronephrosis Current Visit: Yes Status: Acute (3) Obstructive uropathy Current Visit: Yes Status: Acute - Plan Plan: 1. IV hydration 2. Pain control 3. IV antibiotics 4. Urology consultation appreciated s/p J stent; doing well 5. Strict blood sugar control 6. Monitor for sepsis 7. GI DVT prophylaxis Discharge Plan: Home - Advance Directives Does patient have a Living Will: No Does patient have a Durable POA for Healthcare: No - Code Status/Comfort Care Code Status: Full Code Critical Care: No Time Spent Managing PTS Care (In Minutes): 35
[2023-02-21] MEDS: CEFTRIAXONE 1,000 MG in NA CHLORIDE 0.9% 50 ML IVPB SCH ×2 (09:59→20:45)
[2023-02-21] MEDS: NA CHLORIDE 0.9% 1,000 ML IV SCH ×3 (11:00→20:45)
--- NOTE | 2023-02-21 11:05 | RAD REPORT ---
EXAM DESCRIPTION: CT - Abdomen Pelvis W Contrast - 02/21/2023 6:03 am CLINICAL HISTORY: Rectal bleeding COMPARISON: 02/19/2023 TECHNIQUE: CT of the abdomen and pelvis performed following IV administration of iodinated contras t.. This exam was performed according to our departmental dose-optimization program, which includes a utomated exposure control, adjustment of the mA and/or kV according to patient size and/or use of ite rative reconstruction technique. FINDINGS: Lung Bases: Trace right pleural effusion. Bones: Mild endplate spondylosis. Abdomen: Liver: Hepatomegaly. Gallbladder: Prior cholecystectomy. Spleen, Pancreas, and Adrenal Glands: Splenomegaly. The pancreas and adrenal glands are unremarkabl e. Kidneys: Right double-J ureteral stents. Mild right hydroureter and hydronephrosis. Diffusion-weigh opal stable hypodensities in the right kidney with adjacent perinephric fat stranding. Confluent regio ns of decreased cortical density involving the superior and inferior poles. Particularly, in the infe rior pole the region of hypodensity measures 5.6 x 4.2 cm. Stable 5 mm distal left ureteral calculu s. Vasculature: Aortoiliac atherosclerosis. The portal vein is patent. The proximal visceral and renal arteries are patent. Stomach: The stomach and duodenum have normal course. Other: No free intraperitoneal air. Small amount of free fluid. Pelvis: Bladder: Vieyra catheter in the urinary bladder. Bowel: No dilated loops of large or small bowel. Appendix: Not well individually identified. Pelvis: Uterus is not enlarged. 10.0 cm lobulated left adnexal cystic abnormality is stable. IMPRESSION: 1. Right double-J ureteral stents in place. Mild right hydroureter and hydronephrosis. Stable distal left ureteral calculus measuring 5 mm. 2. Diffusion-weighted stable hypodensities in the right kidney with adjacent perinephric fat strand ing. Confluent regions of decreased cortical density involving the superior and inferior poles of the right kidney. These findings are concerning for pyelonephritis. In the inferior pole of the right ki dney a confluent region of hypodensity measures 5.6 x 4.2 cm is visualized. Developing renal abscess is a concern. Continued imaging follow-up recommended. 3. 10.0 cm lobulated left adnexal cystic abnormality is stable. 4. Hepatosplenomegaly. 5. Trace right pleural effusion. Electronically signed by: Gustabo Overton 02/21/2023 4:57 AM CDT Due to temporary technical issues with the PACS/Fluency reporting system, reports are being signed by the in house radiologists without review as a courtesy to insure prompt reporting. The interpreting radiologist is fully responsible for the content of the report.
[2023-02-21 18:37] LABS: Potassium 3.1 mEq/L (3.5-5.1)
[2023-02-22] MEDS: AMPICILLIN SODIUM 2 GM in NA CHLORIDE 0.9% 100 ML IVPB SCH ×2 (01:08→07:54)
[2023-02-22] MEDS: HYDROCODONE/APAP 5/325 MG TAB PO PRN ×3 (03:37→16:53)
[2023-02-22 06:35] LABS: Lymphocytes % 13.3 % (15.3-44.8); MCV 71.2 fL (80-100); MPV 8.1 fL (7.6-11.3); Platelets 168 thou/uL (152-406); RBC Red Blood Cell Count 2.95 M/uL (3.86-4.86)
[2023-02-22] MEDS: NA CHLORIDE 0.9% 1,000 ML IV SCH ×2 (06:37→13:00)
[2023-02-22 06:53] LABS: Albumin 1.8 g/dL (3.4-5.0); Bilirubin Total 0.5 mg/dL (0.2-1.0); Potassium 2.7 mEq/L (3.5-5.1); Protein, Total 5.6 g/dL (6.4-8.2)
[2023-02-22 07:34] LABS: Blood Morphology Comment NOT SEEN (NOT SEEN); Platelet Estimate ADEQ
[2023-02-22] MEDS: CEFTRIAXONE 1,000 MG in NA CHLORIDE 0.9% 50 ML IVPB SCH (07:54)
[2023-02-22] MEDS: PANTOPRAZOLE 40 MG INJ IVP SCH (07:54)
[2023-02-22] MEDS ORDERED: NA CHLORIDE 0.9% 100 ML ONE (09:33)
[2023-02-22 10:33] VITALS: O2SAT 97
[2023-02-22] MEDS ORDERED: POTASSIUM 25 MEQ EFFERV TAB PO ONE (12:13)
[2023-02-22] MEDS ORDERED: POTASSIUM CL SA 10 MEQ TAB PO ONE ×2 (12:44→15:22)
[2023-02-22 15:44] LABS: Hematocrit 25.1 % (36.0-45.0)
[2023-02-22 16:50] VITALS: BP 118/77; TEMP 97.9
== END 2023-02-22 18:30 | disposition home or self-care (01) | DRG 660 ==
LOC: ER 08:02 → ERHOLD 12:47 → 4TH 14:05 → OBSVTOIN 02-20 09:56
PROVIDERS: ADMIT Hospitalist; ATTEND Hospitalist
PROC: BT1D1ZZ Fluoroscopy of Right Kidney, Ureter and Bladder using Low Osmolar Contrast (ICD-10-PCS; 2023-02-19)
PROC: 0T768DZ Dilation of Right Ureter with Intraluminal Device, Via Natural or Artificial Opening Endoscopic (ICD-10-PCS; principal; 2023-02-19 12:00)
PROC: 0T9B70Z Drainage of Bladder with Drainage Device, Via Natural or Artificial Opening (ICD-10-PCS; 2023-02-20)
PROC: 30233N1 Transfusion of Nonautologous Red Blood Cells into Peripheral Vein, Percutaneous Approach (ICD-10-PCS; 2023-02-22)
DX: N13.2 Hydronephrosis with renal and ureteral calculous obstruction (principal); E87.1 Hypo-osmolality and hyponatremia; E87.20 Acidosis, unspecified; N10 Acute pyelonephritis; E86.0 Dehydration; E87.6 Hypokalemia; E83.42 Hypomagnesemia; E03.9 Hypothyroidism, unspecified; F12.90 Cannabis use, unspecified, uncomplicated; F17.210 Nicotine dependence, cigarettes, uncomplicated
CPT/HCPCS: 36415; 51610; 71045; 74177; 74450; 80048; 80053; 80076; 81001; 83605; 83690; 83735; 83880; 84100; 84132; 84145; 84484; 84703; 85014; 85018; 85025; 85610; 86850; 86900; 86901; 86920; 87040; 87077; 87086; 87088; 87186; 87205; 87635; 87804; 93005; 99285; C9113; G0378; J0290; J0696; J2001; J2250; J2270; J2405; J2704; J3010; J3475; J3480; J7030; J7040; J7120; P9016; Q9967